=== PATIENT | female | born 1960 | race Caucasian/White ===

== ENCOUNTER 2016-05-07 10:25 | Emergency (ER) | payer MEDICARE ==
[2016-05-07 11:32] LABS: BASOPHILS 0.3 % (0.0-2.0); HEMATOCRIT 41.5 % (36.0-48.0); IMMATURE GRANULOCYTES 0.3 % (0-5); LYMPHOCYTES 27.7 % (15-50); MCH 33.7 pg (26.0-34.0); MCHC 33.7 g/dL (31.0-37.0); MEAN PLATELET VOLUME 10.1 fL (7.4-10.4); MONOCYTES 8.5 % (2-11); NEUTROPHILS 62.2 % (40-80); PLATELET COUNT 240 10x3/uL (130-400); RBC 4.15 10x6/uL (4.00-5.40); RDW 13.6 % (11.5-14.5); WBC 11.5 10x3/uL (4.8-10.8)
[2016-05-07 11:46] LABS: APPEARANCE CLOUDY (CLEAR); BILIRUBIN NEGATIVE (NEGATIVE); COLOR YELLOW (YELLOW); GLUCOSE NEGATIVE (NEGATIVE); KETONE NEGATIVE (NEGATIVE); LEUKOCYTE ESTERASE 1+ (NEGATIVE); NITRITE NEGATIVE (NEGATIVE); PROTEIN NEGATIVE (NEGATIVE); UROBILINOGEN NORMAL (NORMAL)
[2016-05-07 11:47] LABS: ALBUMIN 3.8 g/dL (3.4-5.0); ALKALINE PHOSPHATASE 120 U/L (46-116); ALT (SGPT) 22 U/L (10-68); BILIRUBIN - TOTAL 0.26 mg/dL (0.2-1.3); CALC OSMOLALITY 278 mosm/kg (275-300); CALCIUM 9.7 mg/dL (8.5-10.1); CARBON DIOXIDE 28.3 mmol/L (21.0-32.0); CHLORIDE - SERUM 101 mmol/L (98-107); CREATININE - SERUM 0.7 mg/dL (0.6-1.3); GLUCOSE 110 mg/dL (74-106); POTASSIUM - SERUM 3.5 mmol/L (3.5-5.1); PROTEIN - SERUM 7.6 g/dL (6.4-8.2); SODIUM 139 mmol/L (136-145); UREA NITROGEN 13 mg/dL (7-18); eGFR NON AFRICAN AMERICAN > 90 mL/min (90-120)
[2016-05-07 11:49] LABS: BACTERIA MODERATE /hpf (NONE SEEN); EPITHELIAL CELLS 0-5 /hpf (0-5); RED CELLS - URINE 0-5 /hpf (0-5)
== END 2016-05-07 13:22 | disposition home or self-care (01) ==
LOC: D.ER 10:25
PROVIDERS: Emergency Medicine; Nurse Practitioner Family
DX: M54.5 Low back pain (principal); S39.012A Strain of muscle, fascia and tendon of lower back, initial encounter; X58.XXXA Exposure to other specified factors, initial encounter; Y93.89 Activity, other specified; Y92.019 Unspecified place in single-family (private) house as the place of occurrence of the external cause; M62.830 Muscle spasm of back

== ENCOUNTER → 2016-06-25 14:57 | Outpatient (CLI) | payer MEDICARE | END | disposition home or self-care (01) | LOC: D.LABREF 14:57 | DX: L72.8 Other follicular cysts of the skin and subcutaneous tissue (principal) ==

== ENCOUNTER 2017-05-11 11:07 | Emergency (ER) | payer MEDICARE, MEDICAID ==
[2017-05-11 11:33] LABS: BASOPHILS 0.5 % (0-2); EOSINOPHILS 3.3 % (0-7); HEMATOCRIT 45.2 % (36.0-48.0); HEMOGLOBIN 15.3 g/dL (12-16); IMMATURE GRANULOCYTES 0.3 % (0-5); LYMPHOCYTES 25.5 % (15-50); MCH 34.1 pg (26.0-34.0); MCHC 33.8 g/dL (31.0-37.0); MCV 100.7 fL (80.0-100.0); MEAN PLATELET VOLUME 10.1 fL (7.4-10.4); MONOCYTES 7.6 % (2-11); NEUTROPHILS 62.8 % (40-80); PLATELET COUNT 218 10x3/uL (130-400); RBC 4.49 10x6/uL (4.00-5.40); RDW 13.5 % (11.5-14.5)
[2017-05-11 11:49] LABS: ALBUMIN 3.9 g/dL (3.4-5.0); ALKALINE PHOSPHATASE 162 U/L (46-116); ALT (SGPT) 22 U/L (10-68); CALC OSMOLALITY 276 mosm/kg (275-300); CALCIUM 9.7 mg/dL (8.5-10.1); CARBON DIOXIDE 29.1 mmol/L (21.0-32.0); CHLORIDE - SERUM 100 mmol/L (98-107); CREATININE - SERUM 0.7 mg/dL (0.6-1.3); GLUCOSE 103 mg/dL (74-106); POTASSIUM - SERUM 3.4 mmol/L (3.5-5.1); PROTEIN - SERUM 7.9 g/dL (6.4-8.2); SODIUM 139 mmol/L (136-145); UREA NITROGEN 11 mg/dL (7-18); eGFR NON AFRICAN AMERICAN > 90 mL/min (90-120)
== END 2017-05-11 13:23 | disposition home or self-care (01) ==
LOC: D.ER 11:07
PROVIDERS: Family Medicine
DX: R22.42 Localized swelling, mass and lump, left lower limb (principal); I80.3 Phlebitis and thrombophlebitis of lower extremities, unspecified; Z86.718 Personal history of other venous thrombosis and embolism; F17.200 Nicotine dependence, unspecified, uncomplicated

== ENCOUNTER → 2017-07-17 19:00 | Outpatient (CLI) | payer MEDICARE, MEDICAID | END | disposition home or self-care (01) | LOC: D.MAMMO 05-23 09:00 | DX: N64.52 Nipple discharge (principal) ==

== ENCOUNTER 2019-09-22 08:00 | Outpatient (CLI) | payer MEDICARE, MEDICAID | END 2019-09-22 13:54 | disposition home or self-care (01) | LOC: D.MAMMO 08:00 | PROVIDERS: ATTEND Family Medicine | DX: Z12.31 Encounter for screening mammogram for malignant neoplasm of breast (principal) ==

== ENCOUNTER 2020-06-28 15:34 | Inpatient (IN) | payer MEDICARE, MEDICAID ==
[~2020-06-28] VITALS: Ht 172.7 cm; Wt 115.2 kg
[2020-06-28] MEDS ORDERED: ZOLOFT100 MG PO (15:44)
[2020-06-28] MEDS ORDERED: CYCLOBENZAPRINE10 MG PO (15:44)
[2020-06-28] MEDS ORDERED: CHLORTHALIDONE50 MG PO (15:45)
[2020-06-28] MEDS ORDERED: KEPPRA500 MG PO (15:46)
[2020-06-28] MEDS ORDERED: BUSPAR10 MG PO (15:46)
[2020-06-28] MEDS ORDERED: ZYPREXA20 MG PO (15:47)
[2020-06-28] MEDS ORDERED: DILANTIN100 MG PO (15:47)
[2020-06-28] MEDS ORDERED: NEURONTIN600 MG PO (15:48)
[2020-06-28 16:24] LABS: BASOPHILS 0.3 % (0-2); EOSINOPHILS 0.6 % (0-7); HEMATOCRIT 53.1 % (36.0-48.0); HEMOGLOBIN 17.3 g/dL (12-16); IMMATURE GRANULOCYTES 0.2 % (0-5); LYMPHOCYTE ABS# 2.69 10x3/uL (1.18-3.74); LYMPHOCYTES 19.6 % (15-50); MCH 33.5 pg (26.0-34.0); MCHC 32.6 g/dL (31.0-37.0); MCV 102.7 fL (80.0-100.0); MEAN PLATELET VOLUME 10.2 fL (7.4-10.4); MONOCYTES 9.7 % (2-11); NEUTROPHIL ABS# 9.57 10x3/uL (1.56-6.13); NEUTROPHILS 69.6 % (40-80); PLATELET COUNT 191 10x3/uL (130-400); RBC 5.17 10x6/uL (4.00-5.40); RDW 16.3 % (11.5-14.5); WBC 13.8 10x3/uL (4.8-10.8)
[2020-06-28 16:25] LABS: APTT 27.9 SECONDS (22.8-39.4); INR 1.13 (0.85-1.17); PROTIME 13.5 SECONDS (11.6-15.0)
[2020-06-28 16:26] LABS: CALC OSMOLALITY 278 mosm/kg (275-300); CARBON DIOXIDE 30.9 mmol/L (21.0-32.0); CHLORIDE - SERUM 100 mmol/L (98-107); CREATININE - SERUM 0.7 mg/dL (0.6-1.3); GLUCOSE 117 mg/dL (74-106); POTASSIUM - SERUM 3.7 mmol/L (3.5-5.1); SODIUM 138 mmol/L (136-145); UREA NITROGEN 17 mg/dL (7-18); eGFR NON AFRICAN AMERICAN 90 mL/min (90-120)
[2020-06-28 16:27] LABS: D-DIMER-QUANTITATIVE 0.31 ug/mLFEU (0.20-0.54)
[2020-06-28 16:49] LABS: ALBUMIN 3.3 g/dL (3.4-5.0); ALKALINE PHOSPHATASE 139 U/L (30-120); ALT (SGPT) 21 U/L (10-68); BILIRUBIN - TOTAL 0.31 mg/dL (0.2-1.3); CKMB 1.2 U/L (0.0-3.6); CREATINE KINASE 35 UL (21-215); PRO BNP 1506 pg/mL (0-125); PROTEIN - SERUM 7.5 g/dL (6.4-8.2)
[2020-06-28 16:50] LABS: TROPONIN-I 0.069 ng/mL (0.000-0.060)
[2020-06-28 19:04] LABS: CKMB 1.5 U/L (0.0-3.6); CREATINE KINASE 31 UL (21-215)
[2020-06-28 19:07] LABS: TROPONIN-I 0.068 ng/mL (0.000-0.060)
[2020-06-28 19:18] VITALS: BP 117/77
[2020-06-28 22:35] VITALS: BP 118/61; BMI 38.7
[2020-06-29] VITALS: BP 129/74
--- NOTE | 2020-06-29 00:10 | NUR ---
Upon helping the patient change into a gown i noticed what looked like a moving tiny insect in the bed where she was lying. The patient informed me that she does he bed bugs at home but hasnt had any new bites. Will still take all precautions.
--- NOTE | 2020-06-29 01:00 | NUR ---
PATIENT REFUSED BIPAP AND KEPT REMOVING IT. PLACED ON 3L NC AND IS AT 98%.
[2020-06-29 01:29] LABS: CKMB 1.1 U/L (0.0-3.6); CREATINE KINASE 29 UL (21-215); TROPONIN-I 0.046 ng/mL (0.000-0.060)
[2020-06-29 04:00] VITALS: BP 154/78
--- NOTE | 2020-06-29 05:43 | NUR ---
PATIENT WAS GIVEN A BATH , BUT I WAS NOT ABLE TO WASH THE PATIENT'S HAIR. WHILE GIVING THE PATIENT A BATH IT APPEARED THAT SHE HAD NOT BEEN BATHED IN QUITE SOME TIME DUE TO THE AMOUNT OF BUILD UP OF DIRT ON THE SKIN WELL WHAT SEEMED TO BE BODY ODOR. BLACK RESIDUE CAME OFF ONTO THE TOWEL WHILE BATHING HER.
--- NOTE | 2020-06-29 05:50 | NUR ---
Patient's daughter called to express that she would really like for social work and case management to assist with her mother's situation. She was very passionate about receiving any help. The aptient lives with her daughter who is a [place] in the day time a [employer], her grandchild, and her daughter's . She stated that her mother refuses to get out of the bed and bathe herself or allow them to bathe her. She stated that it is so bad that when she treats the house for the bed bugs she can't get rid of them due to her mother not wanting to change clothes and bathe. The infestation is to the point the daughter says that they are looking to move and has already thrown away a lot of her mother's items that were contaminated along with her cigarettes,tobacco machine, and her marijuana supplies. She says that her mother chain smokes cigarettes and marijauna for hours each day. She stated that her mother has also been non-compliant with her mental health appointments regarding her epilepsy with severe convulsions as well as her schizophrenia/bipolar disorder. She informed me that the patient abuses her medications by overly medicating such as doubling or tripling doses. Daughter would love for patient to have placement in a facility for better care or even assistance a home such as OT to come work with her during the week.
[2020-06-29 07:20] LABS: APTT 30.1 SECONDS (22.8-39.4); INR 1.09 (0.85-1.17); PROTIME 13.1 SECONDS (11.6-15.0)
[2020-06-29 07:34] LABS: ALBUMIN 3.1 g/dL (3.4-5.0); ALKALINE PHOSPHATASE 132 U/L (30-120); ALT (SGPT) 19 U/L (10-68); BILIRUBIN - TOTAL 0.17 mg/dL (0.2-1.3); CALCIUM 9.1 mg/dL (8.5-10.1); CARBON DIOXIDE 33.9 mmol/L (21.0-32.0); CHLORIDE - SERUM 102 mmol/L (98-107); CHOL - HDL RATIO 3.3 ratio (2.3-4.1); CHOLESTEROL, TOTAL 197 mg/dL (0-200); CKMB 1.1 U/L (0.0-3.6); CREATINE KINASE 27 UL (21-215); GLUCOSE 106 mg/dL (74-106); HDL CHOLESTEROL 60 mg/dL (32-96); LDL CHOLESTEROL 122 mg/dL (0-100); MAGNESIUM - SERUM 2.4 mg/dL (1.8-2.4); PRO BNP 774 pg/mL (0-125); PROTEIN - SERUM 7.4 g/dL (6.4-8.2); SODIUM 139 mmol/L (136-145); TRIGLYCERIDE 79 mg/dL (30-200); TROPONIN-I 0.024 ng/mL (0.000-0.060)
[2020-06-29 07:35] LABS: CALC OSMOLALITY 276 mosm/kg (275-300); CREATININE - SERUM 0.5 mg/dL (0.6-1.3); UREA NITROGEN 9 mg/dL (7-18); eGFR NON AFRICAN AMERICAN > 90 mL/min (90-120)
[2020-06-29 07:52] LABS: BASOPHILS 0.1 % (0-2); EOSINOPHILS 0.1 % (0-7); HEMATOCRIT 52.4 % (36.0-48.0); HEMOGLOBIN 16.6 g/dL (12-16); IMMATURE GRANULOCYTES 0.2 % (0-5); LYMPHOCYTE ABS# 1.53 10x3/uL (1.18-3.74); LYMPHOCYTES 14.1 % (15-50); MCH 32.6 pg (26.0-34.0); MCHC 31.7 g/dL (31.0-37.0); MCV 102.9 fL (80.0-100.0); MEAN PLATELET VOLUME 10.2 fL (7.4-10.4); MONOCYTES 7.2 % (2-11); NEUTROPHILS 78.3 % (40-80); PLATELET COUNT 195 10x3/uL (130-400); RBC 5.09 10x6/uL (4.00-5.40); RDW 16.2 % (11.5-14.5); WBC 10.9 10x3/uL (4.8-10.8)
[2020-06-29 08:29] VITALS: BP 118/73
[2020-06-29 12:04] VITALS: BP 129/76
[2020-06-29 16:06] VITALS: Ht 172.7 cm; Wt 115.2 kg
[2020-06-29 17:50] VITALS: BP 146/83
[2020-06-29 20:00] VITALS: BP 139/73
--- NOTE | 2020-06-30 03:13 | NUR ---
PT IN BED WITH EYES OPEN. PT INSTRUCTED TO USE CALL LIGHT WHEN SHE NEEDS TO USE PORTABLE POTTY. PT ACKNOWLEGE UNDERSTANDING. WILL CONT TO MONITOR
[2020-06-30 04:00] VITALS: BP 146/88
[2020-06-30 09:12] VITALS: BP 144/84
[2020-06-30 13:46] VITALS: BP 142/80
--- NOTE | 2020-06-30 14:32 | HP ---
PATIENT: DEBRA ALEXANDRA MEDICAL RECORD: [id number] ACCOUNT: [id number] LOCATION:D.[facility] [id number] : 56 ADMISSION DATE: 06/28/20 PCP: MAUREEN ROSE MD HISTORY AND PHYSICAL EXAMINATION DATE OF ADMISSION: 06/28/2020 CHIEF COMPLAINT: Shortness of breath for 2 days. HISTORY OF PRESENT ILLNESS: This is a 60-year-old female with schizophrenia, seizure disorder and COPD. She presented to the Emergency Department with shortness of breath for the last couple of days. Denies fever or chills. Her O2 sat was 86% on room air, heart rate was 108. She was placed on BiPAP in the Emergency Department. White count was a little elevated at 13,800. Troponin was little elevated at 0.069. Chest x-ray, questionable left basilar atelectasis versus infiltrate. She is admitted for further evaluation. PAST MEDICAL HISTORY: Schizophrenia, hyperlipidemia, seizure disorder, COPD. PAST SURGICAL HISTORY: Tonsillectomy, appendectomy, hysterectomy, bladder surgery. 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 DRUG ALLERGIES: None. CURRENT MEDICATIONS: Sertraline 100 mg twice a day, chlorpromazine 100 mg twice a day, olanzapine 20 mg at bedtime, Flexeril 10 mg t.i.d., buspirone 10 mg t.i.d., Keppra 500 mg b.i.d., Dilantin 100 mg take 3 at bedtime, gabapentin 600 mg t.i.d. and I started her on Bumex 1 mg every morning few weeks ago. HABITS: She continues to smoke cigarettes. She denies alcohol. She does admit to some marijuana usage. SOCIAL HISTORY: , lives with family. FAMILY HISTORY: Noncontributory. REVIEW OF SYSTEMS: GENERAL: No major weight changes. HEENT: No particular sinus or allergy problems. RESPIRATORY: She has COPD and continues to smoke. CARDIAC: No history of heart disease. GASTROINTESTINAL: Occasional heartburn. GENITOURINARY: Has had a history of bladder surgery. No significant UTIs at this time. MUSCULOSKELETAL: She has some chronic back pain, has had back surgery to remove an ependymoma. NEUROLOGIC: She has a history of seizure disorder. No seizures that I know of since I have been taking care of her for the last few years. PSYCHIATRIC: Has a history of schizophrenia. PHYSICAL EXAMINATION: VITAL SIGNS: Initially in the ER, her O2 sat was 86% on room air with a pulse of 108. When I saw her, temperature was 97.2, pulse 88, respirations 18, blood pressure 118/61, O2 sat 94. She was on BiPAP. HEENT: Unremarkable except she is on BiPAP now. HISTORY AND PHYSICAL [id number] DEBRA ALEXANDRA HEART: Regular rate and rhythm. LUNGS: Diminished breath sounds, a few wheezes. ABDOMEN: Soft, flat, nontender. EXTREMITIES: No edema. She has a purple color to her feet and ankles, but her skin is warm. NEUROLOGIC: She is a little somnolent to fall a lot of commands. LABORATORY AND DIAGNOSTIC DATA: CBC with a white count of 13,800, hemoglobin 17.3, hematocrit 53.1. Basic metabolic panel; sodium 138, potassium 3.7, chloride 100, CO2 30.9, BUN 17, creatinine 0.7, glucose 117, calcium 9.0. Liver functions are normal. INR 1.13. D-dimer normal at 0.31. Troponin is 0.069, proBNP 1506. Chest x-ray with questionable left basilar atelectasis versus infiltrate. ASSESSMENT: 1. Chronic obstructive pulmonary disease exacerbation. 2. Possible pneumonia. 3. Chronic obstructive pulmonary disease. 4. Schizophrenia. 5. Seizure disorder. PLAN: We will continue her usual medications, give her respiratory treatment. She has been started on IV steroids, Zithromax and Rocephin. Will remain on BiPAP for now. Other tests or procedures as warranted. TRANSINT:[id number] Voice Confirmation ID: [id number] DOCUMENT ID: [id number] MAUREEN ROSE MD at 1432 CC: [id number] DICTATION DATE: 06/29/20 1407 CONCRETE FOREMAN: 06/29/20 1436 ADM IN [place] [id number] [place] [address]
[2020-06-30 17:33] VITALS: BP 136/79
--- NOTE | 2020-07-01 01:46 | NUR ---
PT SENIOR SYSTEMS SOFTWARE ENGINEER LIGHT SHE REQUEST TO GET NEW IV IN PLACE, SHE STATES NURSE WAS GETTING A NEW ONE SINCE 4 PM AND NEVER CAME BACK. IV INFILTRATED AND ARM IS SWOLLEN TO AC. IV REMOVED AND 2X2 PLACE. NEW IV PLACE IN LOWER FOREARM WITH NO ISSUES AND RUNNING NS@100ML. PT WILL CONT TO GET MONITORED.
--- NOTE | 2020-07-01 05:14 | NUR ---
I have reviewed this patient and I concur with the Shift Assessment completed by the Licensed Practical Nurse today this shift.
[2020-07-01 06:20] LABS: BASOPHILS 0.2 % (0-2); EOSINOPHILS 0.5 % (0-7); HEMATOCRIT 55.1 % (36.0-48.0); HEMOGLOBIN 17.4 g/dL (12-16); IMMATURE GRANULOCYTES 0.2 % (0-5); LYMPHOCYTES 19.8 % (15-50); MCH 32.7 pg (26.0-34.0); MCHC 31.6 g/dL (31.0-37.0); MCV 103.6 fL (80.0-100.0); MEAN PLATELET VOLUME 10.2 fL (7.4-10.4); MONOCYTES 7.5 % (2-11); NEUTROPHIL ABS# 9.06 10x3/uL (1.56-6.13); NEUTROPHILS 71.8 % (40-80); PLATELET COUNT 209 10x3/uL (130-400); RBC 5.32 10x6/uL (4.00-5.40); WBC 12.6 10x3/uL (4.8-10.8)
[2020-07-01 06:39] LABS: CALC OSMOLALITY 273 mosm/kg (275-300); CALCIUM 9.8 mg/dL (8.5-10.1); CARBON DIOXIDE 36.5 mmol/L (21.0-32.0); CHLORIDE - SERUM 97 mmol/L (98-107); CREATININE - SERUM 0.6 mg/dL (0.6-1.3); GLUCOSE 126 mg/dL (74-106); SODIUM 137 mmol/L (136-145); UREA NITROGEN 7 mg/dL (7-18); eGFR NON AFRICAN AMERICAN > 90 mL/min (90-120)
[2020-07-01 06:45] LABS: POTASSIUM - SERUM 3.3 mmol/L (3.5-5.1)
--- NOTE | 2020-07-01 07:31 | NUR ---
IN BED SLEEPING, AROUSES TO VOICE. BED LOW POSITION, CALL LIGHT IN REACH. WILL CONTINUE TO MONITOR.
[2020-07-01 10:42] VITALS: BP 137/81
[2020-07-01 13:29] VITALS: BP 131/67
--- NOTE | 2020-07-01 15:54 | MORECARE ---
CASE MANAGEMENT DISCHARGE SUMMARY PATIENT: DEBRA ALEXANDRA UNIT: [id number] ADM DATE: 06/28/20 AGE: 60 : 56 SEX: F ROOM/BED: D.[facility] AUTHOR: NAMITA,DOC PHYSICIAN: REFERRING PHYSICIAN: MAUREEN ROSE MD DATE OF SERVICE: 07/01/20 Case Management Discharge Planning Summary COMMENTS ENTERED DATE: 07/01/20 15:46 CT COMMENT TYPE: Discharge Planning REVIEWER: Argenis Smith CM MET WITH PATIENT DAUGHTER ADDIE YESTERDAY EVENING. PATIENT DAUGHTER STATES HER MOTHER NEEDS SOME REHAB BEFORE GOING BACK HOME. STATES HER HEALTH HAS DRASTICALLY DECLINED AND SHE IS MUCH WEAKER. DAUGHTER WOULD LIKE MOM TO GO TO A REHAB IN [place]. I AM FAXING A REFERRAL TO THE [facility]. THE PATIENT HAS LIVED WITH HER DAUGHTER FOR SEVERAL YEARS NOW. CM TO FOLLOW AND ASSIST NEEDED. DCP REVIEW SUMMARY ANTICIPATED D/C DATE: EXPECTED LOS : CASE STATUS: DCP Initiated INITIAL REVIEW: 06/28/2020 INITIAL REVIEWER: Argenis Smith FINAL DISCHARGE DISPOSITION: : FINAL REVIEWER: FINAL REVIEW DATE: DCP Focus Questions & Answers QUESTION: ANSWER : PROVIDER NETWORKING REVIEW DATE: 07/01/2020 SERVICE TYPE: [facility] REVIEWER: Argenis Smith PATIENT: DEBRA ALEXANDRA ENCOUNTER: [id number] MEDICAL RECORD#: [id number] ADMISSION DATE: 06/28/2020 DISCHARGE DATE: ATTENDING MD: MAUREEN ESCUDERO : AGE: 60 MARITAL STATUS: D DC PLAN ID: [id number] FACILITY: [facility] PRINTED ON: 07/01/20 15:54 CT All edits/amendments must be made on the electronic document DICTATION DATE: 07/01/20 1554 INVESTIGATION DIVISION CAPTAIN: DM 07/01/20 1554 RPT#: [id number] DC DATE: STATUS: ADM IN [facility] [address] [place] [address] END OF REPORT
--- NOTE | 2020-07-01 16:20 | MORECARE ---
CASE MANAGEMENT DISCHARGE SUMMARY PATIENT: DEBRA ALEXANDRA UNIT: [id number] ADM DATE: 06/28/20 AGE: 60 : 56 SEX: F ROOM/BED: D.[facility] AUTHOR: NAMITA,DOC PHYSICIAN: REFERRING PHYSICIAN: MAUREEN ROSE MD DATE OF SERVICE: 07/01/20 Case Management Discharge Planning Summary COMMENTS ENTERED DATE: 07/01/20 15:46 CT COMMENT TYPE: Discharge Planning REVIEWER: Argenis Smith CM MET WITH PATIENT DAUGHTER ADDIE YESTERDAY EVENING. PATIENT DAUGHTER STATES HER MOTHER NEEDS SOME REHAB BEFORE GOING BACK HOME. STATES HER HEALTH HAS DRASTICALLY DECLINED AND SHE IS MUCH WEAKER. DAUGHTER WOULD LIKE MOM TO GO TO A REHAB IN [place]. I AM FAXING A REFERRAL TO [facility]. THE PATIENT HAS LIVED WITH HER DAUGHTER FOR SEVERAL YEARS NOW. CM TO FOLLOW AND ASSIST NEEDED. DCP REVIEW SUMMARY ANTICIPATED D/C DATE: EXPECTED LOS : CASE STATUS: DCP Initiated INITIAL REVIEW: 06/28/2020 INITIAL REVIEWER: Argenis Smith FINAL DISCHARGE DISPOSITION: : FINAL REVIEWER: FINAL REVIEW DATE: DCP Focus Questions & Answers QUESTION: ANSWER : PROVIDER NETWORKING REVIEW DATE: 07/01/2020 SERVICE TYPE: [facility] Facility REVIEWER: Argenis Smith PATIENT: DEBRA ALEXANDRA ENCOUNTER: [id number] MEDICAL RECORD#: [id number] ADMISSION DATE: 06/28/2020 DISCHARGE DATE: ATTENDING MD: MAUREEN ESCUDERO : AGE: 60 MARITAL STATUS: D DC PLAN ID: [id number] FACILITY: [facility] PRINTED ON: 07/01/20 16:20 CT All edits/amendments must be made on the electronic document DICTATION DATE: 07/01/20 161 MIRROR FABRICATION SUPERVISOR: DM 07/01/20 161 RPT#: [id number] DC DATE: STATUS: ADM IN [facility] [address] [place] [address] END OF REPORT
[2020-07-01 17:41] VITALS: BP 132/77
[2020-07-01 20:35] VITALS: BP 137/72
--- NOTE | 2020-07-02 00:12 | NUR ---
I have reviewed this patient and I concur with the Shift Assessment completed by the Licensed Practical Nurse today this shift.
[2020-07-02 01:01] VITALS: BP 154/85
[2020-07-02 05:53] VITALS: BP 171/88
--- NOTE | 2020-07-02 08:03 | NUR ---
AWAKE AND ALERT. ORIENTED X3. NO C/O AT THIS TIME. LUNGS HAVE WHEEZES AND CRACKLES THROUGHOUT, NON PRODUCTIVE COUGH NOTED. SKIN IS INTACT WITHOUT REDNESS. SL TO LEFT FOREARM IS PATENT WITHOUT REDNESS AT INSERTION SITE. DENIES NEEDS.
[2020-07-02 08:52] VITALS: BP 143/77
--- NOTE | 2020-07-02 10:00 | NUR ---
ATE MOST OF BREAKFAST. TOOK AM MEDS WITHOUT DIFFICULTY. DENIES NEEDS.
[2020-07-02 11:45] VITALS: BP 134/90
--- NOTE | 2020-07-02 12:30 | NUR ---
LUNCH SERVED IN ROOM. FEEDS SELF. DENIES NEEDS.
--- NOTE | 2020-07-02 14:56 | NUR ---
REQUESTED AND GIVNE ONE CUP OF COFFEE AT THIS TIME. DENIES FURTHER NEEDS.
[2020-07-02 16:50] VITALS: BP 126/78
--- NOTE | 2020-07-02 18:39 | NUR ---
ATE ALL OF SUPPER. UP TO BSC PER SELF. DENIES NEEDS. NO CHANGES NOTED.
[2020-07-03 05:24] LABS: BASOPHILS 0.2 % (0-2); EOSINOPHILS 0.2 % (0-7); HEMATOCRIT 57.6 % (36.0-48.0); HEMOGLOBIN 18.4 g/dL (12-16); IMMATURE GRANULOCYTES 0.3 % (0-5); LYMPHOCYTE ABS# 2.38 10x3/uL (1.18-3.74); MCH 32.3 pg (26.0-34.0); MCHC 31.9 g/dL (31.0-37.0); MEAN PLATELET VOLUME 10.1 fL (7.4-10.4); MONOCYTES 7.4 % (2-11); NEUTROPHIL ABS# 9.76 10x3/uL (1.56-6.13); NEUTROPHILS 73.9 % (40-80); PLATELET COUNT 229 10x3/uL (130-400); RDW 15.4 % (11.5-14.5); WBC 13.2 10x3/uL (4.8-10.8)
[2020-07-03 05:29] LABS: MCV 101.1 fL (80.0-100.0)
[2020-07-03 05:41] LABS: CALCIUM 9.9 mg/dL (8.5-10.1); CARBON DIOXIDE 36.7 mmol/L (21.0-32.0); CHLORIDE - SERUM 95 mmol/L (98-107); CREATININE - SERUM 0.6 mg/dL (0.6-1.3); GLUCOSE 131 mg/dL (74-106); SODIUM 137 mmol/L (136-145); eGFR NON AFRICAN AMERICAN > 90 mL/min (90-120)
[2020-07-03 05:42] LABS: CALC OSMOLALITY 276 mosm/kg (275-300); POTASSIUM - SERUM 3.1 mmol/L (3.5-5.1); UREA NITROGEN 16 mg/dL (7-18)
--- NOTE | 2020-07-03 07:39 | NUR ---
IN BED RESTING, AROUSES TO VOICE. DENIES NEEDS AT THIS TIME. BED LOW POSITION, CALL LIGHT IN REACH. WILL CONTINUE TO MONITOR.
[2020-07-03 10:56] VITALS: BP 168/88
[2020-07-03 14:36] VITALS: BP 150/85
[2020-07-03 17:43] VITALS: BP 160/85
[2020-07-04 08:52] VITALS: BP 118/73
--- NOTE | 2020-07-04 09:53 | NUR ---
PT RESTING QUIETLY IN BED. O2 @ 4L NC IN PLACE. SALINE LOC TO RIGHT FOREARM, SITE WITHOUT REDNESS OR EDEMA. DENIES NEEDS AT THIS TIME. CL WITHIN READ. ENCOURAGED TO CALL WITH NEEDS. CONTINUE POC
[2020-07-04 12:48] VITALS: BP 147/78
--- NOTE | 2020-07-04 15:47 | NUR ---
OT NOTE: PT COMPLETED ADL MOB WITH SPV-MOD I. PT COMPLETED HYGIENE TASKS AT SINK LEVEL WITH SPV. PT COMPLETED KARO SOCKS AT EOB WITH SPV. PT COMPLETED HAIR GROOMING AT EOB WITH SPV. [id number] ZHEN BHARDWAJ COTA
[2020-07-04 16:51] VITALS: BP 148/78
[2020-07-04 20:00] VITALS: BP 142/74
[2020-07-05] VITALS: BP 139/80
[2020-07-05 04:00] VITALS: BP 148/73
--- NOTE | 2020-07-05 06:43 | NUR ---
PATIENT DENIED PAIN, SHE APPEARED TO REST WELL THROUGH THE NIGHT.
--- NOTE | 2020-07-05 08:38 | NUR ---
PT SITTING UP ON SIDE OF BED. O2 @ 4L NC IN PLACE. PT DENIES PAIN AT THIS TIME. DOES VOICE WISHES FOR COFFEE. SALINE LOC TO LEFT AC, SITE WITHOUT REDNESS OR EDEMA. DENIES FURTHER NEEDS AT THIS TIME. CL WITHIN REACH. ENCOURAGED TO CALL WITH NEEDS. CONTINUE POC
[2020-07-05 09:03] VITALS: BP 142/79
--- NOTE | 2020-07-05 09:27 | MORECARE ---
CASE MANAGEMENT DISCHARGE SUMMARY PATIENT: DEBRA ALEXANDRA UNIT: [id number] ADM DATE: 06/28/20 AGE: 60 : 56 SEX: F ROOM/BED: D.2231 AUTHOR: NAMITA,DOC PHYSICIAN: REFERRING PHYSICIAN: MAUREEN ROSE MD DATE OF SERVICE: 07/05/20 Case Management Discharge Planning Summary COMMENTS ENTERED DATE: 07/05/20 9:16 CT COMMENT TYPE: Discharge Planning REVIEWER: Argenis Smith SPOKE WITH PATIENT TODAY AND SHE DOES NOT WANT REHAB. SHE IS AMBULATORY IN THE ROOM. SHE IS ON OXYGEN. I HAVE ORDERED A WALK TEST FOR HOME OXYGEN NEEDS. HAS A NEBULIZER AT HOME. PATIENT PLANS TO RETURN TO HOME HOPEFULLY TODAY OR TOMORROW. SHE DOES NOT WANT HOME HEALTH. SHE MAY NEED A WALKER, I WILL CHECK PT NOTES. CM TO FOLLOW AND ASSIST NEEDED. ENTERED DATE: 07/01/20 15:46 CT COMMENT TYPE: Discharge Planning REVIEWER: Argenis Smith CM MET WITH PATIENT DAUGHTER ADDIE YESTERDAY EVENING. PATIENT DAUGHTER STATES HER MOTHER NEEDS SOME REHAB BEFORE GOING BACK HOME. STATES HER HEALTH HAS DRASTICALLY DECLINED AND SHE IS MUCH WEAKER. DAUGHTER WOULD LIKE MOM TO GO TO A REHAB IN [place]. I AM FAXING A REFERRAL TO THE [facility]. THE PATIENT HAS LIVED WITH HER DAUGHTER FOR SEVERAL YEARS NOW. CM TO FOLLOW AND ASSIST NEEDED. DCP REVIEW SUMMARY ANTICIPATED D/C DATE: EXPECTED LOS : CASE STATUS: DCP Initiated INITIAL REVIEW: 06/28/2020 INITIAL REVIEWER: Argenis Smith FINAL DISCHARGE DISPOSITION: : FINAL REVIEWER: FINAL REVIEW DATE: DCP Focus Questions & Answers QUESTION: ANSWER : PROVIDER NETWORKING REVIEW DATE: 07/01/2020 SERVICE TYPE: Senior Living Facility REVIEWER: Argenis Smith PATIENT: DEBRA ALEXANDRA ENCOUNTER: [id number] MEDICAL RECORD#: [id number] ADMISSION DATE: 06/28/2020 DISCHARGE DATE: ATTENDING MD: MAUREEN ESCUDERO : AGE: 60 MARITAL STATUS: D DC PLAN ID: [id number] FACILITY: [facility] PRINTED ON: 07/05/20 9:27 CT All edits/amendments must be made on the electronic document DICTATION DATE: 07/05/20926 TYPECASTING MACHINE OPERATOR: JACKI 07/05/20926 RPT#: [id number] DC DATE: STATUS: ADM IN [facility] [address] [place] [address] END OF REPORT
[2020-07-05 13:38] VITALS: BP 138/87
--- NOTE | 2020-07-05 14:16 | MORECARE ---
CASE MANAGEMENT DISCHARGE SUMMARY PATIENT: DEBRA ALEXANDRA UNIT: [id number] ADM DATE: 06/28/20 AGE: 60 : 56 SEX: F ROOM/BED: D.2231 AUTHOR: NAMITA,DOC PHYSICIAN: REFERRING PHYSICIAN: MAUREEN ROSE MD DATE OF SERVICE: 07/05/20 Case Management Discharge Planning Summary COMMENTS ENTERED DATE: 07/05/20 14:01 CT COMMENT TYPE: Discharge Planning REVIEWER: Argenis Smith [facility] IS DELIVERING HER WALKER AND OXYGEN TO HER ROOM AND THEN SHE IS SET UP FOR DISCHARGE WHEN MEDICALLY READY. PATIENT WILL DC TO HOME WITH HER DAUGHTER. CM TO FOLLOW AND ASSIST NEEDED. ENTERED DATE: 07/05/20 9:16 CT COMMENT TYPE: Discharge Planning REVIEWER: Argenis Sarah SPOKE WITH PATIENT TODAY AND SHE DOES NOT WANT REHAB. SHE IS AMBULATORY IN THE ROOM. SHE IS ON OXYGEN. I HAVE ORDERED A WALK TEST FOR HOME OXYGEN NEEDS. HAS A NEBULIZER AT HOME. PATIENT PLANS TO RETURN TO HOME HOPEFULLY TODAY OR TOMORROW. SHE DOES NOT WANT HOME HEALTH. SHE MAY NEED A WALKER, I WILL CHECK PT NOTES. CM TO FOLLOW AND ASSIST NEEDED. ENTERED DATE: 07/01/20 15:46 CT COMMENT TYPE: Discharge Planning REVIEWER: Argenis Sarah CM MET WITH PATIENT DAUGHTER ADDIE YESTERDAY EVENING. PATIENT DAUGHTER STATES HER MOTHER NEEDS SOME REHAB BEFORE GOING BACK HOME. STATES HER HEALTH HAS DRASTICALLY DECLINED AND SHE IS MUCH WEAKER. DAUGHTER WOULD LIKE MOM TO GO TO A REHAB IN [place]. I AM FAXING A REFERRAL TO THE [facility]. THE PATIENT HAS LIVED WITH HER DAUGHTER FOR SEVERAL YEARS NOW. CM TO FOLLOW AND ASSIST NEEDED. DCP REVIEW SUMMARY ANTICIPATED D/C DATE: EXPECTED LOS : CASE STATUS: DCP Initiated INITIAL REVIEW: 06/28/2020 INITIAL REVIEWER: Argenis Smith FINAL DISCHARGE DISPOSITION: : FINAL REVIEWER: FINAL REVIEW DATE: DCP Focus Questions & Answers QUESTION: ANSWER : PROVIDER NETWORKING REVIEW DATE: 07/01/2020 SERVICE TYPE: Assisted Facility REVIEWER: Argenis Smith PATIENT: DEBRA ALEXANDRA ENCOUNTER: [id number] MEDICAL RECORD#: [id number] ADMISSION DATE: 06/28/2020 DISCHARGE DATE: ATTENDING MD: MAUREEN ESCUDERO : AGE: 60 MARITAL STATUS: D DC PLAN ID: [id number] FACILITY: [facility] PRINTED ON: 07/05/20 14:16 CT All edits/amendments must be made on the electronic document DICTATION DATE: 07/05/201415 RADIOLOGIST CHIEF OF BREAST IMAGING: JACKI 07/05/20 141 RPT#: [id number] DC DATE: STATUS: ADM IN [facility] [address] [place] [address] END OF REPORT
[2020-07-05] MEDS ORDERED: PREDNISONE20 MG PO (15:46)
--- NOTE | 2020-07-05 15:52 | NUR ---
OT NOTE: PT COMPLETED ADL MOB WITH SPV. PT COMPLETED BED MOB WITH MOD I. PT COMPLETED EOB SITTING WITH MOD I. PT COMPLETED HYGIENE TASKS AT SINK LEVEL WITH SPV. [id number] ZHEN BHARDWAJ COTA
--- NOTE | 2020-07-06 15:48 | MORECARE ---
CASE MANAGEMENT DISCHARGE SUMMARY PATIENT: DEBRA ALEXANDRA UNIT: [id number] ADM DATE: 06/28/20 AGE: 60 : 56 SEX: F ROOM/BED: D.2231 AUTHOR: NAMITA,DOC PHYSICIAN: REFERRING PHYSICIAN: MAUREEN ROSE MD DATE OF SERVICE: 07/06/20 Case Management Discharge Planning Summary COMMENTS ENTERED DATE: 07/05/20 14:01 CT COMMENT TYPE: Discharge Planning REVIEWER: Argenis Smith [facility] IS DELIVERING HER WALKER AND OXYGEN TO HER ROOM AND THEN SHE IS SET UP FOR DISCHARGE WHEN MEDICALLY READY. PATIENT WILL DC TO HOME WITH HER DAUGHTER. CM TO FOLLOW AND ASSIST NEEDED. ENTERED DATE: 07/05/20 9:16 CT COMMENT TYPE: Discharge Planning REVIEWER: Argenis Sarah SPOKE WITH PATIENT TODAY AND SHE DOES NOT WANT REHAB. SHE IS AMBULATORY IN THE ROOM. SHE IS ON OXYGEN. I HAVE ORDERED A WALK TEST FOR HOME OXYGEN NEEDS. HAS A NEBULIZER AT HOME. PATIENT PLANS TO RETURN TO HOME HOPEFULLY TODAY OR TOMORROW. SHE DOES NOT WANT HOME HEALTH. SHE MAY NEED A WALKER, I WILL CHECK PT NOTES. CM TO FOLLOW AND ASSIST NEEDED. ENTERED DATE: 07/01/20 15:46 CT COMMENT TYPE: Discharge Planning REVIEWER: Argenis Sarah CM MET WITH PATIENT DAUGHTER ADDIE YESTERDAY EVENING. PATIENT DAUGHTER STATES HER MOTHER NEEDS SOME REHAB BEFORE GOING BACK HOME. STATES HER HEALTH HAS DRASTICALLY DECLINED AND SHE IS MUCH WEAKER. DAUGHTER WOULD LIKE MOM TO GO TO A REHAB IN [place]. I AM FAXING A REFERRAL TO THE [facility]. THE PATIENT HAS LIVED WITH HER DAUGHTER FOR SEVERAL YEARS NOW. CM TO FOLLOW AND ASSIST NEEDED. DCP REVIEW SUMMARY ANTICIPATED D/C DATE: EXPECTED LOS : CASE STATUS: DCP Initiated INITIAL REVIEW: 06/28/2020 INITIAL REVIEWER: Argenis Smith FINAL DISCHARGE DISPOSITION: : FINAL REVIEWER: FINAL REVIEW DATE: DCP Focus Questions & Answers QUESTION: ANSWER : PROVIDER NETWORKING REVIEW DATE: 07/01/2020 SERVICE TYPE: [facility] REVIEWER: Argenis Smith PATIENT: DEBRA ALEXANDRA ENCOUNTER: [id number] MEDICAL RECORD#: [id number] ADMISSION DATE: 06/28/2020 DISCHARGE DATE: 07/05/2020 ATTENDING MD: MAUREEN ESCUDERO : AGE: 60 MARITAL STATUS: D DC PLAN ID: [id number] FACILITY: [facility] PRINTED ON: 07/06/20 15:48 CT All edits/amendments must be made on the electronic document DICTATION DATE: 07/06/201547 STAMP PAD MAKER: JACKI 07/06/20 1548 RPT#: [id number] DC DATE:07/05/20 STATUS: DIS IN [facility] [address] [place] [address] END OF REPORT
== END 2020-07-05 17:51 | disposition home or self-care (01) | DRG 193 ==
LOC: D.ER 15:34 → D.MS 18:10
PROVIDERS: Family Medicine; ADMIT Family Medicine; ATTEND Family Medicine
PROC: 5A09357 Assistance with Respiratory Ventilation, Less than 24 Consecutive Hours, Continuous Positive Airway Pressure (ICD-10-PCS; principal; 2020-06-28)
DX: J18.9 Pneumonia, unspecified organism (principal); J96.01 Acute respiratory failure with hypoxia; J44.1 Chronic obstructive pulmonary disease with (acute) exacerbation; J44.0 Chronic obstructive pulmonary disease with (acute) lower respiratory infection; F17.200 Nicotine dependence, unspecified, uncomplicated; F12.90 Cannabis use, unspecified, uncomplicated; F20.9 Schizophrenia, unspecified; G40.909 Epilepsy, unspecified, not intractable, without status epilepticus

== ENCOUNTER 2020-07-20 16:36 | Observation (INO) | payer MEDICARE, MEDICAID ==
[~2020-07-20] VITALS: Ht 172.7 cm; Wt 90.7 kg
--- NOTE | ~2020-07-20 | SS ---
PATIENT:DEBRA ALEXANDRA :56 MEDICAL RECORD: [id number] DISCHARGE SUMMARY ADMISSION DATE: 07/20/20 DISCHARGE DATE: 07/21/20 ASSIGNED TO OBSERVATION: 07/20/2020 DATE OF DISCHARGE: 07/21/2020 CHIEF COMPLAINT: Atypical chest pain. HISTORY OF PRESENT ILLNESS: This is a 60-year-old female with a history of schizophrenia, hyperlipidemia, seizure disorder and COPD, who presented to the ED complaining of central chest pain that radiated through the precordium. She denied nausea, vomiting, diaphoresis, no radiation of symptoms up to the jaw or out to either arm. She has no known history of coronary artery disease, but she does smoke. In the ED, her troponin was negative and chest x-ray showed possible small bilateral pleural effusions. She is assigned to observation to rule out acute AR. PAST MEDICAL HISTORY: She was just admitted into the hospital 2-3 weeks ago with shortness of breath and found to have COPD. Her troponin was bumped a little then and it was felt that it was due to stress. PAST SURGICAL HISTORY: Tonsillectomy, appendectomy, hysterectomy, bladder surgery. 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 DRUG ALLERGIES: None. CURRENT MEDICATIONS: Flexeril 10 mg p.r.n. spasm, gabapentin 600 mg t.i.d., olanzapine 20 mg once a day, Dilantin extended release 300 mg at bedtime, sertraline 100 mg twice a day, BuSpar 10 mg t.i.d., Keppra 500 mg b.i.d., chlorthalidone 100 mg twice a day. HABITS: She smoked cigarettes up to the last admission and reportedly has stopped since then. She denies any alcohol, but does admit to some marijuana usage. SOCIAL HISTORY: She is and lives with family. FAMILY HISTORY: No known heart disease. REVIEW OF SYSTEMS: GENERAL: No major weight changes. HEENT: No particular sinus or allergy problems. RESPIRATORY: She has COPD with long history of smoking. CARDIAC: No history of heart disease. GASTROINTESTINAL: Occasional heartburn. GENITOURINARY: Has a history of bladder surgery. No significant UTIs going on. MUSCULOSKELETAL: She has had some chronic back pain and surgery to remove the ependymoma. NEUROLOGIC: Has a history of seizure disorder. She has had no seizures since I started taking care of her a few years ago. PSYCHIATRIC: She has a history of schizophrenia and sees someone at a local mental health clinic. SHORT STAY SUMMARY [id number] DEBRA ALEXANDRA PHYSICAL EXAMINATION: VITAL SIGNS: Temperature 97.5, pulse 92, respirations 18, blood pressure 121/73, O2 sats 97%. GENERAL: She is awake and alert, in no acute distress. She has had no further chest pain. All that basically stopped before she came into the hospital. SKIN: Warm and dry. HEENT: Grossly within normal limits. NECK: Supple. No JVD or bruit. HEART: Regular rate and rhythm without murmur. LUNGS: Fairly clear. Occasional wheeze. ABDOMEN: Soft, flat, nontender. EXTREMITIES: No edema. NEUROLOGIC: Unremarkable. LABORATORY DATA: CBC today showed a white count of 11,500, hemoglobin 14.6, hematocrit 46.0 normal differential. Chemistry upon admission, sodium 141, potassium 4.0, chloride 104, CO2 33.5, BUN 8, creatinine 0.6, glucose 101, calcium 9.2, magnesium 2.2. Liver enzymes are all normal. Albumin 3.0, globulin is fine. INR 0.95. Troponin now has been less than 0.017 twice. DIAGNOSTIC STUDIES: Chest x-ray showed possible small bilateral pleural effusions. ASSESSMENT: 1. Atypical chest pain. 2. History of schizophrenia. 3. History of chronic obstructive pulmonary disease. 4. History of seizure disorder. PLAN: She is feeling fine and wants to go home. Cardiac enzymes were negative. We will discharge her home on her same regular medicines that she was on prior to admission. I will see her back in about a week and will get her into cardiology as an outpatient for further evaluation. TRANSINT:[id number] Voice Confirmation ID: [id number] DOCUMENT ID: [id number] MAUREEN ROSE MD CC: [id number] DICTATION DATE: 07/21/20 1502 AGER TENDER: 07/22/20 0415 DIS IN 07/21/[address] [facility] [address] [place] [id number]
--- NOTE | 2020-07-20 01:00 | NUR ---
PT SLEEPING. NO C/O OR NEEDS
[~2020-07-20 16:36] MED LIST: BUSPAR10 MG PO; CHLORTHALIDONE50 MG PO; CYCLOBENZAPRINE10 MG PO; DILANTIN100 MG PO; KEPPRA500 MG PO; NEURONTIN600 MG PO; PREDNISONE20 MG PO; ZOLOFT100 MG PO; ZYPREXA20 MG PO
[2020-07-20 16:55] VITALS: BP 120/69
[2020-07-20 17:29] LABS: BASOPHILS 0.2 % (0-2); EOSINOPHILS 1.2 % (0-7); HEMATOCRIT 45.6 % (36.0-48.0); HEMOGLOBIN 14.5 g/dL (12-16); IMMATURE GRANULOCYTES 0.7 % (0-5); LYMPHOCYTE ABS# 3.51 10x3/uL (1.18-3.74); LYMPHOCYTES 26.9 % (15-50); MCHC 31.8 g/dL (31.0-37.0); MCV 100.7 fL (80.0-100.0); MEAN PLATELET VOLUME 9.5 fL (7.4-10.4); MONOCYTES 5.3 % (2-11); NEUTROPHIL ABS# 8.57 10x3/uL (1.56-6.13); NEUTROPHILS 65.7 % (40-80); PLATELET COUNT 187 10x3/uL (130-400); RBC 4.53 10x6/uL (4.00-5.40); RDW 14.9 % (11.5-14.5); WBC 13.1 10x3/uL (4.8-10.8)
[2020-07-20 17:38] LABS: INR 0.95 (0.85-1.17); PROTIME 11.7 SECONDS (11.6-15.0)
[2020-07-20 17:39] LABS: APTT 27.1 SECONDS (22.8-39.4)
[2020-07-20 17:45] LABS: CALC OSMOLALITY 278 mosm/kg (275-300); CALCIUM 9.2 mg/dL (8.5-10.1); CARBON DIOXIDE 33.5 mmol/L (21.0-32.0); CHLORIDE - SERUM 104 mmol/L (98-107); CREATININE - SERUM 0.6 mg/dL (0.6-1.3); GLUCOSE 101 mg/dL (74-106); SODIUM 141 mmol/L (136-145); UREA NITROGEN 8 mg/dL (7-18); eGFR NON AFRICAN AMERICAN > 90 mL/min (90-120)
[2020-07-20 18:02] LABS: ALKALINE PHOSPHATASE 94 U/L (30-120); ALT (SGPT) 30 U/L (10-68); BILIRUBIN - TOTAL 0.28 mg/dL (0.2-1.3); CKMB 0.6 U/L (0.0-3.6); CREATINE KINASE 24 UL (21-215); MAGNESIUM - SERUM 2.2 mg/dL (1.8-2.4); PROTEIN - SERUM 6.5 g/dL (6.4-8.2)
[2020-07-20 18:10] LABS: TROPONIN-I < 0.017 ng/mL (0.000-0.060)
[2020-07-20 19:14] VITALS: BP 121/59
--- NOTE | 2020-07-20 20:30 | NUR ---
PT ARRIVED TO [facility] [place]. SHE IS A/A/O. SHE STATES SHE IS NOT HAVING ANY PAIN AT THIS TIME. SKIN IS WARM AND DRY. SHE IS UP AD GLORIA IN HER ROOM. SHE HAS HER TABLET AND HER PHONE TO OCCUPY HERSELF. AFTER THIS INITIAL MEETING I GOT HER SOME COFFEE AND EXPLAINED THAT I WOULD BE BACK SHORTLY TO DO HER ASSESSMENT BUT I'D BE CHECKING ON HER IN BETWEEN THAT TIME.
--- NOTE | 2020-07-20 21:30 | NUR ---
IN PT ROOM TO DO HER ADMISSION PAPERWORK. PT IS VERY HELPFUL IN THIS PROCESS. SHE HAS NO C/O OF ANY PAIN AT THIS TIME.
[2020-07-20 21:45] LABS: CKMB 0.6 U/L (0.0-3.6); CREATINE KINASE 22 UL (21-215)
[2020-07-20 21:47] LABS: TROPONIN-I < 0.017 ng/mL (0.000-0.060)
--- NOTE | 2020-07-20 22:20 | NUR ---
FIRST EKG DONE. NO C/O FROM PT.
[2020-07-20 22:53] VITALS: BP 121/59; BMI 30.4
--- NOTE | 2020-07-20 23:00 | NUR ---
PT IS DOZING AT THIS TIME.
[2020-07-20 23:28] VITALS: BP 113/63
[2020-07-21] VITALS: BP 129/89; BP 139/79
--- NOTE | 2020-07-21 03:30 | NUR ---
SECOND EKG DONE. PT HAS NO CHEST PAIN. O2 AT 2L/NC. BLUE NON SLIP SOCKS TAKEN TO THE PT. SHE HAS NO C/O AND NO NEEDS
[2020-07-21 04:00] VITALS: BP 135/72
[2020-07-21 04:40] LABS: BASOPHILS 0.4 % (0-2); EOSINOPHILS 1.2 % (0-7); HEMOGLOBIN 14.6 g/dL (12-16); IMMATURE GRANULOCYTES 0.5 % (0-5); LYMPHOCYTE ABS# 3.09 10x3/uL (1.18-3.74); MCH 32.2 pg (26.0-34.0); MCHC 31.7 g/dL (31.0-37.0); MCV 101.5 fL (80.0-100.0); MEAN PLATELET VOLUME 9.9 fL (7.4-10.4); MONOCYTES 6.5 % (2-11); NEUTROPHIL ABS# 7.37 10x3/uL (1.56-6.13); NEUTROPHILS 64.4 % (40-80); PLATELET COUNT 202 10x3/uL (130-400); RBC 4.53 10x6/uL (4.00-5.40); RDW 15.2 % (11.5-14.5); WBC 11.5 10x3/uL (4.8-10.8)
[2020-07-21 05:08] LABS: ALBUMIN 2.9 g/dL (3.4-5.0); ALKALINE PHOSPHATASE 96 U/L (30-120); ALT (SGPT) 31 U/L (10-68); BILIRUBIN - TOTAL 0.28 mg/dL (0.2-1.3); CALC OSMOLALITY 272 mosm/kg (275-300); CALCIUM 9.1 mg/dL (8.5-10.1); CARBON DIOXIDE 32.4 mmol/L (21.0-32.0); CHLORIDE - SERUM 102 mmol/L (98-107); CKMB 0.6 U/L (0.0-3.6); CREATINE KINASE 16 UL (21-215); GLUCOSE 83 mg/dL (74-106); POTASSIUM - SERUM 4.2 mmol/L (3.5-5.1); PROTEIN - SERUM 6.6 g/dL (6.4-8.2); SODIUM 138 mmol/L (136-145); TROPONIN-I < 0.017 ng/mL (0.000-0.060); UREA NITROGEN 8 mg/dL (7-18); eGFR NON AFRICAN AMERICAN 77 mL/min (90-120)
[2020-07-21 05:21] LABS: CREATININE - SERUM 0.8 mg/dL (0.6-1.3)
--- NOTE | 2020-07-21 05:28 | NUR ---
PT IS RESTING QUIETLY WITH HER EYES CLOSED. RESPIRATIONS ARE EVEN AND NON LABORED.
[2020-07-21 08:22] VITALS: BP 141/70
[2020-07-21 09:40] LABS: CKMB 0.6 U/L (0.0-3.6); CREATINE KINASE 19 UL (21-215)
[2020-07-21 09:43] LABS: TROPONIN-I < 0.017 ng/mL (0.000-0.060)
[2020-07-21 12:10] VITALS: Ht 172.7 cm; Wt 90.7 kg
[2020-07-21 13:26] VITALS: BP 121/73
--- NOTE | 2020-07-21 13:55 | NUR ---
PATIENT REFUSING TO WEAR TELEMETRY, WILL NOTIFY WHEN HE ROUNDS.
--- NOTE | 2020-07-21 15:58 | NUR ---
TELEMETRY REMOVED, SALINE LOCK TAKEN OUT, DISCHARGE PAPERS DISCUSSED. TO CAR WITH SON VIA W/C.
== END 2020-07-21 16:02 | disposition home or self-care (01) ==
LOC: D.ER 16:36 → D.M2 19:22 → OBSVTIME 19:23 → D.M2 07-21 16:02
PROVIDERS: Family Medicine; ADMIT Family Medicine; ATTEND Family Medicine
DX: R07.9 Chest pain, unspecified (principal); I50.9 Heart failure, unspecified; J44.9 Chronic obstructive pulmonary disease, unspecified

== ENCOUNTER → 2020-08-06 11:44 | Outpatient (CLI) | payer MEDICARE, MEDICAID ==
[2020-07-21 12:10] VITALS: BMI 30.4
== END | disposition home or self-care (01) ==
LOC: D.LAB 11:44
PROVIDERS: ATTEND Internal Medicine Pulmonary Disease
DX: J44.9 Chronic obstructive pulmonary disease, unspecified (principal)

== ENCOUNTER → 2020-08-11 07:44 | Outpatient (CLI) | payer MEDICARE ==
[2020-07-21 12:10] VITALS: BMI 30.4
--- NOTE | ~2020-08-11 | EC ---
PATIENT:DEBRA ALEXANDRA DATE OF SERVICE: 08/11/20 SEX: F MEDICAL RECORD: [id number] DATE OF : 56 LOCATION:D.RT AGE OF PATIENT: 60 ADMISSION DATE: 08/11/20 REFERRING PHYSICIAN: INTERPRETING PHYSICIAN: DEE BAZAN MD ECHOCARDIOGRAM REPORT ECHO CHARGES 4 ECHO COMPLETE Date: 08/11/20 CLINICAL DIAGNOSIS: LOWER EDEMA/ASSESS EF AND VALVES ECHOCARDIOGRAPHIC MEASUREMENTS (adult normal given) AC root (d.<3.7cm) 3.4 cm LV Septum d (<1.2 cm> 1.8 cm Valve Excursion 1.5 cm LV Septum (systole) 2.1 cm Left Atria (s.<4.0cm> 3.8 cm LVPW d(<1.2cm) 1.7 cm RV (d.<2.3cm) 3.9 cm LVPW (sytole) 2.1 cm LV diastole(<5.6CM) 4.6 cm MV E-F(>70mm/sec) cm LV systole 3.0 cm LVOT Diameter 1.6 cm MV exc.(>10mm) 1.7 cm Est.ejection fraction (50-75%) % DOPPLER: LVIT cm/sec A 92.0 cm/sec E 82.0 cm/sec LA cm/sec RVSP 16 mmHg LVOT 108 cm/sec AOP1/2T m/s Asc. Ao 139 cm/sec RVOT 104 cm/sec RA cm/sec PA 124 cm/sec AV Gradient Peak 7.69 mmHg AV Mean 3.83 mmHg AV Area 1.6 cm MV Gradient Peak 6.30 mmHg MV Mean 2.61 mmHg MV Area cm COMMENTS: X Ray Consultant: 2 IRASEMA LLAMAS Hand Filer Balance Wheel: 3 Dr. Joseph TAPE# PACS Pericardial Effusion N DATE OF SERVICE: Adequate 2D, color flow imaging, spectral Doppler, and M-Mode. FINDINGS: LVH is present. LV internal dimensions are normal. Wall motion is normal. EF is greater than or equal to 55%. Aortic valve is sclerosed without stenosis by Doppler interrogation. Left atrium is normal at 3.8 cm. Mitral valve shows no prolapse. Trace MR. Right side is grossly normal. Trace TR. TRANSINT:[id number] Voice Confirmation ID: [id number] DOCUMENT ID: [id number] ECHOCARDIOGRAM REPORT [id number] DEBRA ALEXANDRA GREGORY A MD CC: [id number] DICTATION DATE: 08/12/20909 ENVELOPE FOLDING MACHINE ADJUSTER: 08/12/20 1213 DEP CLI 08/11/20 [place] [id number]
== END | disposition home or self-care (01) ==
LOC: D.RT 07:44
PROVIDERS: ATTEND Internal Medicine Pulmonary Disease
DX: J44.9 Chronic obstructive pulmonary disease, unspecified (principal); R60.0 Localized edema; J96.12 Chronic respiratory failure with hypercapnia; Z87.891 Personal history of nicotine dependence